=== PATIENT | female | born 1975 | race Caucasian/White ===

== ENCOUNTER → 2019-10-17 09:38 | Outpatient (CLI) | payer BC ==
[2016-08-27 12:25] VITALS: BMI 21.8
[~2019-10-17 09:38] MED LIST: ADIPEX-P37.5 MG PO; BUSPAR10 MG PO; HYDROCODON-ACE1 EAC7 PO; IBUPROFEN600 MG PO; LEXAPRO20 MG PO; VALTREX500 MG PO; ZOVIRAX200 MG PO; [UNRECOGNIZED DRUG - OTHER]
== END | disposition home or self-care (01) ==
LOC: D.US 09:38
PROVIDERS: ATTEND Obstetrics & Gynecology
DX: M79.661 Pain in right lower leg (principal)

== ENCOUNTER 2020-05-01 11:35 | Outpatient (CLI) | payer BC ==
[~2020-05-01] VITALS: Ht 167.6 cm; Wt 70.5 kg
[2020-05-01 11:59] VITALS: BP 117/61; Ht 167.6 cm; Wt 70.5 kg
== END 2020-05-01 12:20 | disposition home or self-care (01) ==
LOC: D.OPS 11:35
PROVIDERS: ATTEND Family Medicine
DX: M81.0 Age-related osteoporosis without current pathological fracture (principal)

== ENCOUNTER 2020-05-28 17:30 | Outpatient (CLI) | payer BC ==
[2020-05-01 11:59] VITALS: BMI 25.0
== END 2020-05-28 23:59 | disposition home or self-care (01) ==
LOC: D.MAMMO 17:30
PROVIDERS: ATTEND Clinical Nurse Specialist Family Health
DX: Z12.31 Encounter for screening mammogram for malignant neoplasm of breast (principal)

== ENCOUNTER → 2020-06-27 07:44 | Outpatient (CLI) | payer BC ==
[2020-05-01 11:59] VITALS: BMI 25.0
== END | disposition home or self-care (01) ==
LOC: D.US 07:44
PROVIDERS: ATTEND Clinical Nurse Specialist Family Health
DX: R92.8 Other abnormal and inconclusive findings on diagnostic imaging of breast (principal)

== ENCOUNTER 2021-02-12 11:02 | Outpatient (CLI) | payer BC ==
[~2021-02-12] VITALS: Ht 167.6 cm; Wt 70.9 kg
[2021-02-12 11:43] VITALS: BP 110/65; Ht 167.6 cm; Wt 70.9 kg
== END 2021-02-12 11:51 | disposition home or self-care (01) ==
LOC: D.OPS 11:02
PROVIDERS: ATTEND Family Medicine
DX: M81.0 Age-related osteoporosis without current pathological fracture (principal)